=== PATIENT | male | born 1975 | race Caucasian/White ===

== ENCOUNTER 2016-10-15 09:29 | Emergency (ER) | payer OTHER, SELFPAY ==
[2016-10-15] MEDS ORDERED: Ketorolac Tromethamine 30 MG/ML VIAL ONE (10:11)
[2016-10-15] MEDS ORDERED: Ondansetron HCl/PF 4 MG/2 ML Vial ONE (10:11)
[2016-10-15] MEDS ORDERED: Nitroglycerin 2% Ointment 1 INCH/1 GM Packet ONE (10:11)
[2016-10-15 10:16] LABS: #Eosinphils 0.1 thou/uL (0.0-0.7); #Lymphocytes 0.8 thou/uL (1.20-3.40); #Monocytes 0.4 thou/uL (0.11-0.59); #Neutrophils 5.7 thou/uL (1.40-6.50); %Basophils 0.7 % (0.0-1.0); %Eosinophils 1.3 % (0.0-10.0); %Lymphocytes 11.2 % (21.0-51.0); %Monocytes 5.1 % (0.0-10.0); %Neutrophils 81.7 % (42.0-75.0); Hemoglobin 12.6 g/dL (14.0-18.0); Mean Corpuscular HGB CONC 35.5 g/dL (32.0-36.0); Mean Corpuscular Hemoglobin 31.8 pg (27.0-31.0); Mean Corpuscular Volume 89.5 fl (80.0-94.0); Mean Platelet Volume 8.5 fL (7.4-10.4); Platelet Count 132 thou/uL (130-400); RBC Distribution Width 12.4 % (11.5-14.5); Red Blood Cell (RBC) Count 3.97 mill/uL (4.70-6.10)
[2016-10-15 10:18] LABS: INR-International Normal Ratio 0.9; PTT 25.1 SEC (22.9-36.1); Prothrombin Time 12.8 SEC (12.0-14.7)
[2016-10-15] MEDS ORDERED: Magnesium Sulfate 2 GM/NS 0.9% 50 ML BAG ONE (10:26)
[2016-10-15] MEDS ORDERED: Labetalol HCl 100 MG/20 ML VIAL ONE (10:26)
[2016-10-15] MEDS ORDERED: Carvedilol 6.25 MG TAB ONE (10:26)
[2016-10-15 10:35] LABS: ALT (SGPT) 78 U/L (0-55); AST (SGOT) 78 U/L (5-34); Albumin 3.3 g/dL (3.5-5.0); Alkaline Phosphatase 160 U/L (40-150); Anion Gap 16 mmol/L (10-20); BUN (Urea Nitrogen) 33 mg/dL (8.9-20.6); Bilirubin, Total 1.1 mg/dL (0.2-1.2); CK (CPK) 197 U/L (30-200); Calc. Creatinine Clearance 0 mL/min (70-130); Calcium 8.9 mg/dL (7.8-10.44); Carbon Dioxide 26 mmol/L (22-29); Chloride 93 mmol/L (98-107); Estimated GFR-MDRD 26; Globulin 3.2 g/dL (2.4-3.5); Glucose 129 mg/dL (70-105); Protein, Total 6.5 g/dL (6.0-8.3); Sodium 133 mmol/L (136-145)
[2016-10-15 10:41] LABS: Potassium 2.4 mmol/L (3.5-5.1)
[2016-10-15] MEDS ORDERED: diphenhydrAMINE HCl 50 MG/ML 1 ML VIAL ONE (10:43)
[2016-10-15] MEDS ORDERED: Metoclopramide HCl 10 MG/2 ML VIAL ONE (10:43)
[2016-10-15 10:46] LABS: Troponin I 0.231 ng/mL (< 0.028)
[2016-10-15] MEDS ORDERED: Potassium Chloride 20 MEQ TAB ONE (11:06)
[2016-10-15 11:09] LABS: Alcohol Less than 10 mg/dL (Less than 10); Salicylate Less than 5.0 mg/dL (15.0-30.0)
[2016-10-15 11:12] LABS: CKMB 7.4 ng/mL (0-6.6)
[2016-10-15 11:12] LABS: Acetaminophen Less than 3.0 mcg/mL (10.0-30.0)
[2016-10-15] MEDS ORDERED: Aspirin 325 MG TAB ONE (11:36)
--- NOTE | 2016-10-15 11:39 | CT ---
CT BRAIN: HISTORY: Hypertension and severe headache. FINDINGS: Noncontrast-enhanced CT images of the brain are obtained from the base of the skull to the vertex. Brain and bone windows are obtained. Comparison is made to a previous CT from 10/01/16. Comparison is also made to a previous MRI brain from 10/01/16. CT images demonstrate areas of persis tent decreased density in the right and left cerebellar peduncles as well as the right and left thal ami extending into the deep white matter of the central brain and involving both cerebral peduncles. There is some slight increase of the size of the lateral ventricle and temporal horns when compared to the previous comparison CT from 10/01/16. IMPRESSION: 1. Extensive continued central and posterior fossa areas of decreased density unchanged since the p revious comparison CT. 2. Minimally increased size of the lateral ventricles. POS: JEANNETTE
--- NOTE | 2016-10-15 12:06 | RAD ---
SINGLE VIEW OF THE CHEST: INDICATION: Hypertension. COMPARISON: Prior exam dated 10/03/16. FINDINGS: There is cardiomegaly with pulmonary vascular congestion and bilateral infrahilar airspace opacities . There are small bilateral pleural effusions. No pneumothorax is evident. IMPRESSION: Cardiomegaly with pulmonary vascular congestion and infrahilar opacities may reflect mild congestive heart failure with airspace edema. There are small bilateral pleural effusions. The airspace opac ities can be related to aspiration. Recommend correlation. POS: JOHN
== END 2016-10-15 12:05 | disposition short-term general hospital (02) ==
LOC: MADERS 09:29
DX: I12.9 Hypertensive chronic kidney disease with stage 1 through stage 4 chronic kidney disease, or unspecified chronic kidney disease (principal); N18.2 Chronic kidney disease, stage 2 (mild); I67.4 Hypertensive encephalopathy; E87.6 Hypokalemia; R74.8 Abnormal levels of other serum enzymes; F17.210 Nicotine dependence, cigarettes, uncomplicated
CPT/HCPCS: 70450; 71010; 80053; 80307; 82550; 82553; 83880; 84484; 85025; 85610; 85730; 93005; 94760; 96365; 96375; 96376; 99292; J0360; J1200; J1885; J2405; J2765; J3475; J7070

== ENCOUNTER 2017-11-22 12:32 | Emergency (ER) | payer OTHER, SELFPAY ==
[2017-11-22] MEDS ORDERED: Lisinopril 10 MG TAB ONE (13:02)
[2017-11-22] MEDS ORDERED: Carvedilol 6.25 MG TAB ONE (13:02)
[2017-11-22] MEDS ORDERED: hydrALAZINE 20 MG/ML VIAL ONE (13:02)
[2017-11-22] MEDS ORDERED: hydrALAZINE 10 MG TAB ONE (13:03)
[2017-11-22 13:24] LABS: ALT (SGPT) 80 U/L (8-55); AST (SGOT) 91 U/L (5-34); Alkaline Phosphatase 139 U/L (40-150); Anion Gap 16 mmol/L (10-20); BUN (Urea Nitrogen) 38 mg/dL (8.9-20.6); Bilirubin, Total 0.9 mg/dL (0.2-1.2); Calc. Creatinine Clearance 0 mL/min (70-130); Calcium 9.3 mg/dL (7.8-10.44); Carbon Dioxide 20 mmol/L (22-29); Chloride 104 mmol/L (98-107); Estimated GFR-MDRD 31; Globulin 3.5 g/dL (2.4-3.5); Glucose 98 mg/dL (70-105); Potassium 4.4 mmol/L (3.5-5.1); Protein, Total 7.5 g/dL (6.0-8.3); Sodium 136 mmol/L (136-145)
[2017-11-22 13:25] LABS: Amphetamine Detected (NotDetected); Methamphetamine Detected (NotDetected); THC/Cannabinoid Screen Detected (NotDetected)
[2017-11-22 13:26] LABS: Barbiturates Screen Not Detected (NotDetected); Benzodiazepine Screen Not Detected (NotDetected); Cocaine Metabolite Screen Not Detected (NotDetected); Medtox Control Line Valid? VALID (VALID); Methadone Not Detected (NotDetected); Opiate Screen Not Detected (NotDetected); Oxycodone Screen Not Detected (NotDetected); Phencyclidine (PCP) Not Detected (NotDetected); Tricyclic Screen Not Detected (NotDetected)
[2017-11-22 13:26] LABS: CKMB 2.8 ng/mL (0-6.6); Troponin I Less than 0.010 ng/mL (< 0.028)
[2017-11-22 13:27] LABS: Bilirubin Negative (Negative); Blood, Urine Trace (Negative); Clarity Clear (Clear); Glucose, Urine (Dipstick) Negative (Negative); Leukocyte Negative (Negative); Nitrite Negative (Negative); Protein, Urine (Dipstick) 100 mg/dL (Neg-Trace); Urobilinogen 0.2 mg/dL (0.2-1.0); pH, Urine 5.5 (5.0-9.0)
[2017-11-22 13:29] LABS: Bacteria/HPF Rare-Few HPF (None Seen); RBC/HPF 0-3 HPF (0-3); Squamous Epithelial 0-3 HPF (0-3); WBC/HPF 0-3 HPF (0-3)
[2017-11-22 13:38] LABS: #Basophils 0.1 thou/uL (0.0-0.2); #Eosinphils 0.3 thou/uL (0.0-0.7); #Lymphocytes 0.7 thou/uL (1.20-3.40); #Monocytes 0.3 thou/uL (0.11-0.59); #Neutrophils 5.4 thou/uL (1.40-6.50); %Basophils 1.1 % (0.0-1.0); %Eosinophils 4.1 % (0.0-10.0); %Lymphocytes 10.4 % (21.0-51.0); %Monocytes 4.1 % (0.0-10.0); %Neutrophils 80.3 % (42.0-75.0); Hemoglobin 15.1 g/dL (14.0-18.0); Mean Corpuscular HGB CONC 33.4 g/dL (32.0-36.0); Mean Corpuscular Hemoglobin 29.4 pg (27.0-31.0); Mean Corpuscular Volume 88.1 fl (80.0-94.0); Mean Platelet Volume 7.8 fL (7.4-10.4); Platelet Count 116 thou/uL (130-400); Red Blood Cell (RBC) Count 5.15 mill/uL (4.70-6.10); White Blood Cell (WBC) Count 6.7 thou/uL (4.8-10.8)
[2017-11-22 13:39] LABS: PLT Morphology Comment Appears Decreased
[2017-11-22 13:54] LABS: Manual Diff?? NO
== END 2017-11-22 14:51 | disposition home or self-care (01) ==
LOC: MADERS 12:32
DX: I10 Essential (primary) hypertension (principal); F12.10 Cannabis abuse, uncomplicated; F15.10 Other stimulant abuse, uncomplicated; Z91.14 Patient's other noncompliance with medication regimen; F17.210 Nicotine dependence, cigarettes, uncomplicated; I25.2 Old myocardial infarction; Z79.899 Other long term (current) drug therapy
CPT/HCPCS: 80053; 80306; 81003; 81015; 82553; 83880; 84484; 85025; 93005; J0360

== ENCOUNTER 2018-01-09 11:19 | Emergency (ER) | payer SELFPAY ==
[2018-01-09] MEDS ORDERED: Nitroglycerin 2% Ointment 1 INCH/1 GM Packet ONE (11:45)
--- NOTE | 2018-01-09 11:55 | RAD ---
AP VIEW CHEST: Date: 01/09/18 HISTORY: Nausea and vomiting. FINDINGS: Comparison made to previous exam from 03/10/17. AP view of chest demonstrates the lungs to be well aerated. No evidence of active intrathoracic disea se seen. No evidence of effusions, pneumonia, or pneumothorax seen. IMPRESSION: Unremarkable AP view chest. POS: H
[2018-01-09 12:11] LABS: #Basophils 0.1 thou/uL (0.0-0.2); #Lymphocytes 0.6 thou/uL (1.20-3.40); #Monocytes 0.2 thou/uL (0.11-0.59); #Neutrophils 5.4 thou/uL (1.40-6.50); %Basophils 0.8 % (0.0-1.0); %Eosinophils 0.5 % (0.0-10.0); %Lymphocytes 10.1 % (21.0-51.0); %Monocytes 2.7 % (0.0-10.0); %Neutrophils 85.8 % (42.0-75.0); Hemoglobin 15.3 g/dL (14.0-18.0); Mean Corpuscular HGB CONC 32.3 g/dL (32.0-36.0); Mean Corpuscular Hemoglobin 29.6 pg (27.0-31.0); Mean Corpuscular Volume 91.5 fl (80.0-94.0); Mean Platelet Volume 8.6 fL (7.4-10.4); Platelet Count 86 thou/uL (130-400); RBC Distribution Width 13.6 % (11.5-14.5); Red Blood Cell (RBC) Count 5.17 mill/uL (4.70-6.10); White Blood Cell (WBC) Count 6.3 thou/uL (4.8-10.8)
[2018-01-09 12:14] LABS: Anisocytosis SLIGHT = 6-15 cells (100X) (0-5/hpf); PLT Morphology Comment Appears Decreased
[2018-01-09 12:22] LABS: ALT (SGPT) 115 U/L (8-55); AST (SGOT) 83 U/L (5-34); Albumin 4.8 g/dL (3.5-5.0); Alkaline Phosphatase 128 U/L (40-150); Anion Gap 19 mmol/L (10-20); BUN (Urea Nitrogen) 32 mg/dL (8.9-20.6); Bilirubin, Total 1.3 mg/dL (0.2-1.2); Calc. Creatinine Clearance 0 mL/min (70-130); Carbon Dioxide 21 mmol/L (22-29); Chloride 106 mmol/L (98-107); Estimated GFR-MDRD 28; Globulin 3.7 g/dL (2.4-3.5); Glucose 114 mg/dL (70-105); Potassium 6.1 mmol/L (3.5-5.1); Protein, Total 8.5 g/dL (6.0-8.3); Sodium 140 mmol/L (136-145)
[2018-01-09 12:24] LABS: Troponin I Less than 0.010 ng/mL (< 0.028)
[2018-01-09] MEDS ORDERED: hydrALAZINE 20 MG/ML VIAL ONE (12:42)
[2018-01-09] MEDS ORDERED: Acetaminophen 500 MG TAB ONE ×2 (12:53→13:53)
[2018-01-09 13:09] LABS: CKMB 6.7 ng/mL (0-6.6)
--- NOTE | 2018-01-09 13:45 | CT ---
HEAD CT WITHOUT CONTRAST: Date: 01/09/18 COMPARISON: 10/15/16. HISTORY: Headache and blurred vision for 3 days. TECHNIQUE: Serial axial CT imaging at 5 mm intervals from vertex through skull base without contrast. FINDINGS: There is extensive hypodensity seen in the region of the thalami and periventricular white matter ext ending into the region of the brainstem and bilateral cerebellar hemispheres, as well as bilateral mi ddle cerebellar peduncles. Numerous prior examinations have demonstrated hypodensity within this dist ribution. When compared to the most recent prior study performed 10/15/16, the distribution of this h ypodensity is similar. The lateral ventricles, the third ventricle, and the fourth ventricle appear g rossly unchanged. No intracranial hemorrhage is noted. No mass effect or midline shift is seen. Image d paranasal sinuses and mastoid air cells are well aerated with no displaced calvarial fracture. IMPRESSION: Extensive abnormal hypodensity is seen involving bilateral cerebellar hemispheres, bilateral middle c erebellar peduncles, the brainstem, and the basal ganglia/thalami. Prior imaging has demonstrated ext ensive signal abnormality on prior MRI and extensive abnormal density on prior CTs in this region. It is impossible to exclude an acute degree of edema in these regions, which could be on the basis of i schemia or could be related to demyelinating disease or hypertension. Thus, clinical correlation is e ssential. Follow-up brain MRI could be performed if clinically warranted. POS: [facility]
[2018-01-09] MEDS ORDERED: Furosemide 40 MG/4 ML VIAL ONE (13:53)
== END 2018-01-09 15:06 | disposition left against medical advice (07) ==
LOC: MADERS 11:19
DX: I16.0 Hypertensive urgency (principal); I13.0 Hypertensive heart and chronic kidney disease with heart failure and stage 1 through stage 4 chronic kidney disease, or unspecified chronic kidney disease; N18.9 Chronic kidney disease, unspecified; I50.9 Heart failure, unspecified; B19.20 Unspecified viral hepatitis C without hepatic coma; F17.210 Nicotine dependence, cigarettes, uncomplicated; Z79.899 Other long term (current) drug therapy
CPT/HCPCS: 70450; 71045; 80053; 82553; 83880; 84484; 85025; 93005; 96365; 96366; 96375; J0360; J1940; J7070

== ENCOUNTER 2018-12-19 12:00 | Emergency (ER) | payer SELFPAY ==
[~2018-12-19 12:00] MED LIST: Sodium Chloride 0.9% 1,000 ML BAG ONE
--- NOTE | 2018-12-19 13:40 | RAD ---
XR Chest 1 View Portable HISTORY: Altered mental status COMPARISON: 03/31/2018 FINDINGS: The heart size is normal. The lungs are well expanded without focal areas of consolidation, pneumothorax or pleural effusions. IMPRESSION: No radiographic evidence of acute cardiopulmonary process.
[2018-12-19 13:50] LABS: #Basophils 0.1 thou/uL (0.0-0.2); #Eosinphils 0.2 thou/uL (0.0-0.7); #Lymphocytes 0.8 thou/uL (1.20-3.40); #Monocytes 0.4 thou/uL (0.11-0.59); #Neutrophils 5.4 thou/uL (1.40-6.50); %Basophils 0.8 % (0.0-1.0); %Eosinophils 3.3 % (0.0-10.0); %Lymphocytes 11.8 % (21.0-51.0); %Monocytes 5.1 % (0.0-10.0); Hemoglobin 15.3 g/dL (14.0-18.0); Mean Corpuscular HGB CONC 32.1 g/dL (32.0-36.0); Mean Corpuscular Hemoglobin 29.8 pg (27.0-31.0); Mean Corpuscular Volume 92.7 fL (78.0-98.0); Mean Platelet Volume 8.2 fL (7.4-10.4); Platelet Count 149 thou/uL (130-400); RBC Distribution Width 12.8 % (11.5-14.5); Red Blood Cell (RBC) Count 5.12 mill/uL (4.70-6.10); White Blood Cell (WBC) Count 6.8 thou/uL (4.8-10.8)
[2018-12-19 13:58] LABS: Prothrombin Time 13.2 SEC (12.0-14.7)
--- NOTE | 2018-12-19 14:02 | CT ---
CT BRAIN WITHOUT CONTRAST HISTORY: Altered mental status, nosebleed COMPARISON: 02/13/2018. FINDINGS: There are new areas of decreased attenuation since the last exam involving the basal ganglia, thalami , brainstem and the cerebellar hemispheres. Possibility of acute infarction should be considered. No hemorrhage, midline shift or abnormal extra axial fluid collections is seen. The bony calvarium is intact. There is mucosal disease in the paranasal sinuses. 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 RECOMMENDATION: Further evaluation with MRI should be performed
[2018-12-19] MEDS ORDERED: Diltiazem 125 MG/25 ML ONE (14:07)
[2018-12-19] MEDS ORDERED: Sodium Chloride 0.9% 100 ML ONE (14:08)
[2018-12-19 14:09] LABS: ALT (SGPT) 93 U/L (8-55); AST (SGOT) 60 U/L (5-34); Albumin 4.3 g/dL (3.5-5.0); Alkaline Phosphatase 104 U/L (40-150); Anion Gap 12 mmol/L (10-20); BUN (Urea Nitrogen) 44 mg/dL (8.9-20.6); Calc. Creatinine Clearance 0 mL/min (70-130); Calcium 9.3 mg/dL (7.8-10.44); Carbon Dioxide 22 mmol/L (22-29); Chloride 108 mmol/L (98-107); Estimated GFR-MDRD 26; Globulin 3.7 g/dL (2.4-3.5); Glucose 110 mg/dL (70-105); Potassium 4.4 mmol/L (3.5-5.1); Sodium 138 mmol/L (136-145)
[2018-12-19 14:26] LABS: CKMB 6.3 ng/mL (0-6.6)
[2018-12-19] MEDS ORDERED: Sodium Chloride 0.9% 250 ML 250 ML ONE (14:46)
[2018-12-19] MEDS ORDERED: Aspirin Chewable 81 MG TAB ONE (15:05)
[2018-12-19] MEDS ORDERED: Triple Antibiotic Ointment 15 GM TUBE ONE (15:12)
[2018-12-19] MEDS ORDERED: Neosporin Ophth Soln 10 ml Bottle ONE (15:14)
[2018-12-19] MEDS ORDERED: Triple Antibiotic Oint 1 GM Packet ONE (15:16)
== END 2018-12-19 17:20 | disposition left against medical advice (07) ==
LOC: MADERS 12:00
DX: I67.4 Hypertensive encephalopathy (principal); I11.0 Hypertensive heart disease with heart failure; I50.9 Heart failure, unspecified; I63.9 Cerebral infarction, unspecified; R79.89 Other specified abnormal findings of blood chemistry; I25.2 Old myocardial infarction; F17.210 Nicotine dependence, cigarettes, uncomplicated; Z79.899 Other long term (current) drug therapy
CPT/HCPCS: 70450; 71045; 80053; 82553; 83880; 84484; 85025; 85610; 93005; 96361; 96365; 96376; J3490; J7050